=== PATIENT | male | born 1980 | race Two or more races ===

== ENCOUNTER 2021-09-16 23:22 | Inpatient (IN) | payer OTHER ==
[~2021-09-16] VITALS: Ht 172.7 cm; Wt 54.9 kg
--- NOTE | 2021-09-16 23:48 | NUR ---
SE RECIBE PTE EL CUAL LLEGA EN AMBULANCIA, ALERTA Y ORIENTADO EN MARISEL BENTLEY ESFERAS, REFIERE DOLOR EN EL CUADRANTE SUPERIOR DERECHO DESDE BETTY Y NAUSEAS. PTE LLEGA CANALIZADO POR PERSONAL DE AMBULANCIA EN MANO RT [address], PATENTE. SE PRESENTA A DR CEDENO Y SE UBICA EN AREA DE OBSERVACION.
--- NOTE | 2021-09-17 01:13 | NUR ---
PTE EVALUADA POR EL DR NOEL QUIEN ORDENA EL [place]. SE ORIENTA SOBRE EL [place] ORDENADO, LO CUAL REFIERE ENTENDER. SE REALIZAN PRUEBAS DE LABORATORIO Y SE ADMINISTRAN MEDICAMENTOS ENIO ORDEN MEDICA Y SIGUIENDO MEDIDAS ASEPTICAS. SONOGRAMA ABDOMINAL NOTIFICADO A PERSONAL DE TURNO (MS RUIZ) LA CUAL INIDCA QUE LE TOCA A LAS 3:00AM. SE MANTIENE BAJO OBSERVACION.
--- NOTE | 2021-09-17 09:44 | NUR ---
SE LE ADMINISTRA MEDICAMENTO ENIO ORDEN MEDICA, SE LE EDUCA SOBRE DICHO MEDICAMENTO Y KISHORE REFIERE ENTENDER. SE LE ADILIA MUESTRA DE COVID 19.
[2021-09-22] MEDS ORDERED: AMOX1TAB5 PO (16:26)
[2021-09-22] MEDS ORDERED: INTESTINEX680 M1 PO (16:26)
[2021-09-22] MEDS ORDERED: PROTONIX40 MG PO (16:27)
== END 2021-09-22 18:15 | disposition home or self-care (01) | DRG 376 ==
LOC: ER 23:22 → SURH 09-17 16:08 → SEC-K 09-17 16:08 → SURH 09-18 02:11
PROVIDERS: ADMIT Surgery; ATTEND Surgery
PROC: BW40ZZZ Ultrasonography of Abdomen (ICD-10-PCS; 2021-09-17)
PROC: BW21ZZZ Computerized Tomography (CT Scan) of Abdomen and Pelvis (ICD-10-PCS; 2021-09-17)
PROC: 0DBP8ZX Excision of Rectum, Via Natural or Artificial Opening Endoscopic, Diagnostic (ICD-10-PCS; principal; 2021-09-22)
DX: C7A.026 Malignant carcinoid tumor of the rectum (principal); K52.89 Other specified noninfective gastroenteritis and colitis; K57.30 Diverticulosis of large intestine without perforation or abscess without bleeding; Z20.822 Contact with and (suspected) exposure to COVID-19